=== PATIENT | female | born 1970 | race Caucasian/White ===

== ENCOUNTER → 2018-04-09 | Outpatient (CLI) | payer OTHER ==
[~2018-04-09] VITALS: Ht 162.6 cm; Wt 61.2 kg
[~2018-04-09] MED LIST: HYDROCODON-ACE1 EAC7 PO; MOTRIN IB200 MG PO; MOTRIN400 MG PO; TYLENOL REGULA325 MG PO; VOLTAREN-XR100 MG PO
== END | disposition home or self-care (01) ==
LOC: AMB 10:57
PROC: 0DJD8ZZ Inspection of Lower Intestinal Tract, Via Natural or Artificial Opening Endoscopic (ICD-10-PCS; principal; 2018-04-09)
DX: D50.9 Iron deficiency anemia, unspecified (principal); K64.8 Other hemorrhoids; Z88.1 Allergy status to other antibiotic agents
CPT/HCPCS: J2250